=== PATIENT | female | born 1970 | race Caucasian/White ===

== ENCOUNTER → 2018-04-03 | Outpatient (CLI) | payer BC ==
[2014-07-28 09:09] VITALS: BMI 27.1
[~2018-04-03] MED LIST: CIP500 PO; DICY10CA62 PO; DIPH-1 PO; ESTR1PAT TOP; GAB100 PO; HYDR2TAB4 PO; HYOS0.1224 PO; IBU800 PO; IBUP-136 PO; IBUP800T37 PO; KETO-104 PO; LACT1CAP6 PO; METR-1 PO; METR-119 PO; NOR5 FT; NORE0.3517 PO; ONDA4TAB PO; ONDA4TAB97 PO; OXYC-865 PO; PER PO; SIME125C52 PO; TUMERIC
--- NOTE | 2018-04-06 10:44 | RADIOLOGY IMAGING REPORT ---
FAC[place] [facility] [place]IENT NAME: NAYELI BAWJA : [id number] MR: [id number] V: [id number] EXAM DATE: ORDERING PHYSICIAN: BOSTON MOTT TECHNOLOGIST: Gabriela Calderon PROCEDURE:BILATERAL DIAGNOSTIC DIGITAL MAMMOGRAM WITH CAD ASSISTED INTERPRETATION & 3D TOMOSYNTHESIS COMPARISON:Prior mammograms 01/17/15, 05/31/13, 05/25/13. INDICATIONS:bilateral nipple discharge; bilateral breast pain FINDINGS: Scattered fibroglandular densities are seen in both breasts. The parenchymal pattern has remained stable allowing for difference in mammographic technique & patient positioning. Today's bilateral breast Ultrasound demonstrated mildly prominent ducts in the retroareolar portion of both breast without evidence of internal debris or mass. DIAGNOSTIC CATEGORY 2--BENIGN FINDING. RECOMMENDATIONS: ROUTINE MAMMOGRAM AND CLINICAL EVALUATION. CLINICAL EVALUATION. IMPRESSION: BIRADS 2: Benign finding. Clinical follow-up recommended for patient's intermittent clear nipple discharge. Dictated by: Juliet Whittaker M.D. on 04/03/2018 at 14:05 Transcribed by: [email or web address] on 04/03/2018 at 14:21 Approved by: Juliet Whittaker M.D. on 04/06/2018 at 10:42 [facility]
== END ==
LOC: MAMO 02:17
PROVIDERS: ATTEND Obstetrics & Gynecology
DX: R92.2 Inconclusive mammogram (principal); N64.52 Nipple discharge; N64.4 Mastodynia; Z80.3 Family history of malignant neoplasm of breast
CPT/HCPCS: 77062; 77066

== ENCOUNTER → 2018-04-23 | Outpatient (CLI) | payer BC ==
[2014-07-28 09:09] VITALS: BMI 27.1
[~2018-04-23] MED LIST changes: +ESTR1POW41 MC; +ESTR42.5
[2018-04-23 11:10] LABS: LDL CHOLESTEROL 187 mg/dl
== END ==
LOC: LAB 10:17
PROVIDERS: ATTEND Obstetrics & Gynecology
DX: Z00.00 Encounter for general adult medical examination without abnormal findings (principal)
CPT/HCPCS: 36415; 82040; 82247; 82306; 82310; 82374; 82435; 82465; 82565; 82947; 83718; 84075; 84132; 84155; 84295; 84443; 84450; 84460; 84478; 84520; 85027